=== PATIENT | male | born 1955 | race Caucasian/White ===

== ENCOUNTER → 2019-07-04 | Day surgery (SDC) | payer OTHER ==
[~2019-07-04] MED LIST: ACETAMINOPHEN 325 MG TABLET PO PRN; ALBUTEROL SULFATE 2.5 MG/3 ML NEBU. NEB PRN; ASPI1TAB31 PO; ATROPINE 0.5 MG/5 ML DISP.SYRIN. IV PRN; BISM262O20 PO; CALC400T5 PO; CITA40TA5 PO; CYCL-331 PO; DOCU-109 PO; HYDR50TA PO; IV RINGERS SOLUTION,LACTATED 1,000 ML IV SCH; MIDAZOLAM HCL PF 2 MG/2 ML VIAL. IV PRN; OMEP20CA16 PO; ONDANSETRON PF 4 MG/2 ML VIAL. IV PRN; PHENOL ORAL SPRAY 177ML BOTTLE. MM PRN; PROPOFOL 40 ML IV ONE; SULI150T PO; diphenhydrAMINE 50 MG/ML VIAL IV PRN
[2019-07-04 12:55] VITALS: BP 161/107
== END | disposition home or self-care (01) ==
LOC: SURG 09:25 → EEVIPCON 10:30
PROVIDERS: ATTEND Internal Medicine Gastroenterology
DX: R12 Heartburn (principal); K22.2 Esophageal obstruction; K44.9 Diaphragmatic hernia without obstruction or gangrene; K21.0 Gastro-esophageal reflux disease with esophagitis; R13.10 Dysphagia, unspecified
CPT/HCPCS: 43249; C1894; J2704; J7120; 43235; 43450